=== PATIENT | female | born 1985 | race Caucasian/White ===

== ENCOUNTER → 2016-04-05 | Day surgery (SDC) | payer OTHER ==
[~2016-04-05] VITALS: Ht 172.7 cm; Wt 67.1 kg
[~2016-04-05] MED LIST: IBUP80TA PO; LIDOCAINE 2% INJ 100 MG/5 ML SDV (FOR ANES.) As Ordered ONE; LR 1,000 ML IV SCH; MIDAZOLAM INJ 2 MG/2 ML VIAL (J2250) As Ordered ONE; MIREIUD IU; ONDANSETRON 4MG/2ML VIAL (J2405) As Ordered ONE; ONDANSETRON 4MG/2ML VIAL (J2405) IV PRN; PANT40TA2 PO; PERCOCET 5MG/325MG TAB As Ordered ONE; PERCOCET 5MG/325MG TAB PO ONE; PHENYLephrine HCL 500 MCG/5 ML (100MCG/ML) SYRINGE (J2370) As Ordered ONE; PROPOFOL 200 MG/20 ML VIAL As Ordered ONE; ROCURONIUM BROMIDE 50 MG/5 ML VIAL As Ordered ONE; TUMS500C PO; TYLE325C PO; dexameTHASONE 4 MG/ML 1ML VIAL (J1100) As Ordered ONE; fentaNYL 100 MCG/2 ML INJECTION (J3010) As Ordered ONE
[2016-04-05 07:58] LABS: CONTROL LINE UCG INT CTR LINE PRESENT
--- NOTE | 2016-04-05 09:00 | ROOR ---
Patient Name: Rosa Clayton Procedure Date: 04/05/2016 7:58 AM Date of : 1985 Age: 30 Room: Main OR Gender: Female Note Status: Finalized Procedure: Upper GI endoscopy Indications: For therapy of Murrieta's esophagus Providers: Chirag PATEL MD Referring MD: HAYLIE STALLINGS MD Requesting Provider: Medicines: General Anesthesia Complications: No immediate complications. Procedure: Pre-Anesthesia Assessment: - The heart rate, respiratory rate, oxygen saturations, blood pressure, adequacy of pulmonary ventilation, and response to care were monitored throughout the procedure. The Endoscope was introduced through the mouth, and advanced to the second part of duodenum. The upper GI endoscopy was accomplished without difficulty. The patient tolerated the procedure well. Findings: The esophagus and gastroesophageal junction were examined with white light and narrow band imaging (NBI) from a forward view and retroflexed position. There were esophageal mucosal changes secondary to established short-segment Murrieta's disease. These changes involved the mucosa at the upper extent of the gastric folds (38 cm from the incisors) extending to the Z-line (35 cm from the incisors). Circumferential salmon-colored mucosa was present from 35 to 38 cm and no visible abnormalities were present. The maximum longitudinal extent of these esophageal mucosal changes was 3 cm in length. Circumferential radiofrequency ablation of Murrieta's esophagus was performed using the Odeeox 360 Express catheter and balloon-based endoscopic ablation system. With the endoscope in place, the position and extent of the Murrieta's mucosa and the anatomic landmarks were noted. Endoscopic visualization identified an ablation site including the entire visible Murrieta's segment. A guidewire was passed down the biopsy channel of the endoscope. As the endoscope was withdrawn from the mouth, the guidewire was left in place. An auto-sizing radiofrequency ablation balloon catheter was passed transorally over the guidewire into the esophagus. The endoscope was introduced in a [id number] manner with the ablation catheter. Under direct endoscopic visualization, the balloon ablation catheter was positioned appropriately. The balloon was automatically inflated, and energy was applied at 10 J/cm2. The ablation catheter and guidewire were removed, and the balloon was cleaned. The ablation zone was then cleaned of overlying coagulative debris using irrigation and suction via the endoscope and a cleaning cap. The guidewire was reinserted, and then the ablation catheter was reintroduced into the esophagus over the wire. The ablation catheter was positioned under direct endoscopic visualization so that the proximal edge of the electrode was at the proximal edge of the ablation zone. Reinflation and a second round of ablation were performed with the application of 10 J/cm2 to re-treat the Murrieta's epithelium already treated with the first round of ablation. The ablation catheter and guidewire were then removed. The areas of the esophagus where Murrieta's mucosa had been ablated were then examined with the endoscope. Areas of visible Murrieta's esophagus were completely ablated. Very small (insignificant) Hiatal Hernia. The exam was otherwise without abnormality. 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 Treated with radiofrequency ablation. - Very small (insignificant) Hiatal Hernia. - The examination was otherwise normal. - No specimens collected. Recommendation: - Use Prilosec (omeprazole) 40 mg PO BID indefinitely. - Repeat upper endoscopy in 2 months for follow-up of Murrieta's ablation. Start a full liquid diet today. Eat a soft diet for one week. Continue your usual Reflux medication twice a day indefinitely. You may not need pain medications, but I would recommend you fill the scripts provided, just in case:- (the script was sent to your pharmacy on file) 1) Viscous Lidocaine 2%- 10 ml every 4 hrs as needed for modeate chest pain. 2) Carafate suspension-10 ml every 6-8 hrs for 1 month. Chirag Patel MD Chirag PATEL MD 04/05/2016 9:00:12 AM This report has been signed electronically. Number of Addenda: 0 Note Initiated On: 04/05/2016 7:58 AM Estimated Blood Loss: Estimated blood loss: none.
[2016-04-05 10:30] VITALS: BP 118/75
== END ==
LOC: M SDC 07:04
PROVIDERS: ATTEND Internal Medicine Gastroenterology
DX: K22.70 Barrett's esophagus without dysplasia (principal); K44.9 Diaphragmatic hernia without obstruction or gangrene; F31.9 Bipolar disorder, unspecified; J45.909 Unspecified asthma, uncomplicated; M77.8 Other enthesopathies, not elsewhere classified; F17.210 Nicotine dependence, cigarettes, uncomplicated; Z88.1 Allergy status to other antibiotic agents; Z79.899 Other long term (current) drug therapy
CPT/HCPCS: 43270; 84703; J1100; J2250; J2370; J2405; J3010